=== PATIENT | male | born 1990 | race Two or more races ===

== ENCOUNTER 2019-03-07 20:07 | Emergency (ER) | payer MEDICAID ==
[~2019-03-07] VITALS: Ht 177.8 cm; Wt 74.8 kg
[2019-03-07 20:16] VITALS: BP 144/87
[2019-03-07] MEDS ORDERED: BIKTARVY 50-201 EACH PO (20:16)
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
[2019-03-07] MEDS ORDERED: NAPROXEN500 M2 ORAL (21:29)
[2019-03-07 21:38] VITALS: BP 144/87
--- NOTE | 2019-03-07 21:38 | NUR ---
ED Nurse Note: Patient cleared for discharge by ERMD. Patient verbalized understanding of discharge instructions, ID band removed, Patient ambulatory with steady gait. Patient departed with all belongings.
--- NOTE | 2019-03-08 10:54 | Diagnostic Imaging Report ---
Indication: pain in finger. trauma Findings: 3 views of the right fourth finger were obtained. No acute fractures, malalignment, erosions, or periosteal reaction are seen. Soft tissues are unremarkable. Impression: No acute findings.
== END 2019-03-07 21:38 | disposition home or self-care (01) ==
LOC: EMR 20:44
DX: S62.609A Fracture of unspecified phalanx of unspecified finger, initial encounter for closed fracture (principal); W05.1XXA Fall from non-moving nonmotorized scooter, initial encounter; Y92.9 Unspecified place or not applicable; F17.200 Nicotine dependence, unspecified, uncomplicated
CPT/HCPCS: 29130; 99283